=== PATIENT | male | born 1960 | race African-American/Black ===

== ENCOUNTER 2022-05-22 11:23 | Inpatient (IN) | payer OTHER ==
[2022-05-22 12:40] VITALS: BMI 19.3
[2022-05-22] MEDS ORDERED: METHOCARBAMOL 500 MG TABLET PO PRN (13:22)
[2022-05-22] MEDS ORDERED: IBUPROFEN 400 MG TABLET (FP) PO PRN (13:22)
[2022-05-22] MEDS ORDERED: MAGNESIUM CITRATE 300 ML BOTTLE PO PRN (13:22)
[2022-05-22] MEDS ORDERED: NICOTINE 10 MG CARTRIDGE (INHALER) IH PRN (13:22)
[2022-05-22] MEDS ORDERED: DICYCLOMINE HCL 10 MG CAPSULE PO PRN (13:22)
[2022-05-22] MEDS ORDERED: NALOXONE HCL (KLOXXADO) 8 MG SPRAY NS PRN (13:22)
[2022-05-22] MEDS ORDERED: MAG HYDROX/AL HYDROX/SIMETH 30 ML UNIT-DOSE CUP PO PRN (13:22)
[2022-05-22] MEDS ORDERED: BISMUTH SUBSALICYLATE 262 MG/15 ML BTL PO PRN (13:22)
[2022-05-22] MEDS ORDERED: ONDANSETRON *ODT* 4 MG TABLET SL PRN (13:22)
[2022-05-22] MEDS ORDERED: BENZOCAINE/MENTHOL (CHLORASEPTIC ) LOZENGE MM PRN (13:22)
[2022-05-22] MEDS ORDERED: cloNIDine HCL 0.1 MG TABLET PO PRN (13:22)
[2022-05-22] MEDS ORDERED: IBUPROFEN 600 MG TABLET (FP) PO PRN (13:22)
[2022-05-22] MEDS ORDERED: LOPERAMIDE HCL 2 MG CAPSULE PO PRN (13:22)
[2022-05-22] MEDS ORDERED: methaDONE HCL 10 MG TABLET (FOR DETOX USE ONLY) PO ONE (13:22)
[2022-05-22] MEDS ORDERED: MAGNESIUM HYDROX 2400MG/30ML ORAL SUSPENSION 30 ML CUP PO PRN (13:22)
[2022-05-22] MEDS ORDERED: ACETAMINOPHEN 325 MG TABLET (FP) PO PRN ×2 (13:22)
[2022-05-22] MEDS: LORazepam 1 MG TABLET PO PRN (13:34)
[2022-05-22] MEDS ORDERED: SUVOREXANT 10 MG TABLET PO PRN (14:32)
[2022-05-22 14:33] LABS: HEMATOCRIT 37.4 % (35.4-49); HEMOGLOBIN 11.5 GM/dL (11.7-16.9); MCH 24.5 pg (25.7-33.7); MCHC 30.7 g/dl (32.0-35.9); MEAN CELL VOLUME 79.8 fl (80-96); MEAN PLT VOLUME 7.5 fl (7.5-11.1); PLATELET COUNT 214 10^3/uL (134-434); RBC 4.69 M/mm3 (4.00-5.60)
[2022-05-22 14:34] LABS: ALBUMIN 3.8 g/dl (3.4-5.0)
[2022-05-22 14:35] LABS: CALCIUM 9.4 mg/dL (8.5-10.1)
[2022-05-22 14:36] LABS: BLOOD UREA NITROGEN 9.2 mg/dL (7-18)
[2022-05-22 14:40] LABS: BILIRUBIN,TOTAL 0.3 mg/dL (0.2-1); TOT PROT 7.2 g/dl (6.4-8.2)
[2022-05-22] MEDS: hydrOXYzine PAMOATE 25 MG CAPSULE (FP) PO SCH ×3 (14:40→23:28)
[2022-05-22] MEDS: LORazepam 2 MG TABLET PO SCH ×3 (14:40→23:28)
[2022-05-22] MEDS: PRENATAL VITAMINS W/ FOLIC ACID TABLET (FP) PO SCH (14:42)
[2022-05-22] MEDS ORDERED: MELATONIN 5 MG TABLETS PO SCH (22:00)
[2022-05-22] MEDS: THIAMINE HCL 100 MG TABLET (FP) PO SCH (23:29)
[2022-05-23] MEDS: LORazepam 2 MG TABLET PO SCH ×4 (06:58→23:47)
[2022-05-23] MEDS: hydrOXYzine PAMOATE 25 MG CAPSULE (FP) PO SCH ×5 (06:59→23:46)
[2022-05-23] MEDS: PRENATAL VITAMINS W/ FOLIC ACID TABLET (FP) PO SCH (10:48)
[2022-05-23] MEDS: LORazepam 1 MG TABLET PO PRN (15:10)
[2022-05-23] MEDS: THIAMINE HCL 100 MG TABLET (FP) PO SCH (23:47)
[2022-05-24] MEDS: LORazepam 1 MG TABLET PO SCH ×2 (07:46→10:15)
[2022-05-24] MEDS: hydrOXYzine PAMOATE 25 MG CAPSULE (FP) PO SCH ×3 (07:46→15:05)
[2022-05-24 09:18] VITALS: RESP 16
[2022-05-24] MEDS ORDERED: methaDONE HCL 10 MG TABLET (FOR DETOX USE ONLY) PO ONE (10:00)
[2022-05-24] MEDS: PRENATAL VITAMINS W/ FOLIC ACID TABLET (FP) PO SCH (10:17)
[2022-05-24 13:12] VITALS: BP 147/97; PULSE 79; TEMP 98.7
[2022-05-25] MEDS ORDERED: LORazepam 0.5 MG TABLET PO PRN
[2022-05-25] MEDS ORDERED: LORazepam 0.5 MG TABLET PO SCH (05:00)
[2022-05-26] MEDS ORDERED: LORazepam 0.5 MG TABLET PO ONE (05:00)
[2022-05-26] MEDS ORDERED: methaDONE HCL 10 MG TABLET (FOR DETOX USE ONLY) PO ONE (10:00)
== END 2022-05-24 15:47 | disposition left against medical advice (07) | DRG 770 ==
LOC: YASAS 11:23 → Y3N 13:34
PROVIDERS: ADMIT Allergy & Immunology; ATTEND Surgery
PROC: HZ2ZZZZ Detoxification Services for Substance Abuse Treatment (ICD-10-PCS; principal; 2022-05-22)
DX: F11.23 Opioid dependence with withdrawal (principal); F10.230 Alcohol dependence with withdrawal, uncomplicated; F14.20 Cocaine dependence, uncomplicated; F17.219 Nicotine dependence, cigarettes, with unspecified nicotine-induced disorders; F19.282 Other psychoactive substance dependence with psychoactive substance-induced sleep disorder; F25.9 Schizoaffective disorder, unspecified; F19.24 Other psychoactive substance dependence with psychoactive substance-induced mood disorder; F39 Unspecified mood [affective] disorder; E03.9 Hypothyroidism, unspecified; Z86.19 Personal history of other infectious and parasitic diseases; W19.XXXA Unspecified fall, initial encounter; Y92.230 Patient room in hospital as the place of occurrence of the external cause; Y93.9 Activity, unspecified; Z56.0 Unemployment, unspecified; Z59.00 Homelessness unspecified
CPT/HCPCS: 36415; 71046-TC-FY; 80053; 85027; 86780; C9803-CS; U0003; U0005

== ENCOUNTER 2022-05-23 04:42 | Emergency (ER) | payer OTHER ==
[2022-05-23 06:04] VITALS: PULSE 65; RESP 18; TEMP 97.8; BMI 22.6
[2022-05-23] MEDS ORDERED: chlordiazePOXIDE HCL 25 MG CAPSULE PO ONE (08:33)
[2022-05-23] MEDS ORDERED: chlordiazePOXIDE HCL 25 MG CAPSULE ONE (10:12)
[2022-05-23 11:29] VITALS: BP 184/95
== END 2022-05-23 11:49 | disposition home or self-care (01) ==
LOC: JER 04:42
DX: F19.10 Other psychoactive substance abuse, uncomplicated (principal); W01.0XXA Fall on same level from slipping, tripping and stumbling without subsequent striking against object, initial encounter
CPT/HCPCS: 70450-TC; 99284-25